=== PATIENT | female | born 1965 | race Caucasian/White ===

== ENCOUNTER 2017-11-24 14:52 | Outpatient (RCR) | payer SELFPAY ==
[2017-11-23 12:19] VITALS: BP 141/93
[~2017-11-24] VITALS: Ht 172.7 cm; Wt 92.3 kg
[2017-11-24 15:23] VITALS: BP 148/85
== END 2017-11-24 16:00 | disposition home or self-care (01) ==
LOC: AMSURD 14:52
DX: I82.4Z9 Acute embolism and thrombosis of unspecified deep veins of unspecified distal lower extremity (principal)
CPT/HCPCS: J1650

== ENCOUNTER → 2017-11-25 | Outpatient (CLI) | payer SELFPAY ==
[2017-11-24 15:23] VITALS: BP 148/85
== END ==
LOC: RAD 13:49
DX: R60.0 Localized edema (principal)

== ENCOUNTER 2018-11-13 11:58 | Emergency (ER) | payer BC ==
[~2018-11-13] VITALS: Ht 172.7 cm; Wt 90.0 kg
[2018-11-13 12:36] LABS: EOS # 0.1 (0.04-0.40); HEMATOCRIT 44.1 % (37.0-47.0); HEMOGLOBIN 14.4 g/dL (12.5-16.0); LYMPH# 1.8 (1.50-4.00); MEAN CELL VOLUME 93 fl (78-100); MEAN CORPUSCULAR HEMOGLOBIN 30 pg (27-31); MEAN CORPUSCULAR HGB CONC 33 g/dL (33-37); MEAN PLATELET VOLUME 10.9 fl (7.4-10.4); MONO # 0.3 (0.20-0.80); NEU # 4.4 (1.40-6.50); PLATELET COUNT 170 K/mm3 (130-400); RED BLOOD COUNT 4.75 M/mm3 (4.10-5.30); RED CELL DISTRIBUTION WIDTH 12.9 % (11.5-14.5); WHITE BLOOD COUNT 6.7 K/mm3 (4.8-10.8)
[2018-11-13 12:46] LABS: ALBUMIN 3.7 g/dL (3.5-5.0)
[2018-11-13 12:47] LABS: CALCIUM 9.1 mg/dL (8.3-10.5)
[2018-11-13 12:48] LABS: TOTAL PROTEIN 7.1 g/dL (6.4-8.3)
[2018-11-13 12:50] LABS: TOTAL BILIRUBIN 0.6 mg/dL (0.2-1.2)
[2018-11-13 15:36] LABS: URINE APPEARANCE HAZY; URINE BILIRUBIN NEGATIVE (NEGATIVE); URINE COLOR YELLOW; URINE GLUCOSE NEGATIVE (NEGATIVE); URINE KETONE NEGATIVE (NEGATIVE); URINE NITRATE NEGATIVE (NEGATIVE); URINE PROTEIN(semi-quant) NEGATIVE (NEGATIVE); URINE UROBILINOGEN NORMAL (NORMAL)
[2018-11-13 15:38] LABS: URINE BLOOD 50 ery/uL (NEGATIVE); URINE LEUKOCYTE ESTERASE 1+ (NEGATIVE)
[2018-11-13] MEDS ORDERED: MACROBID 100 M100 MG PO (15:42)
[2018-11-13 16:04] VITALS: BP 138/99
== END 2018-11-13 15:57 | disposition home or self-care (01) ==
LOC: ED 11:58
PROVIDERS: Nurse Practitioner Primary Care
DX: N30.00 Acute cystitis without hematuria (principal); R09.1 Pleurisy; F17.210 Nicotine dependence, cigarettes, uncomplicated; Z90.710 Acquired absence of both cervix and uterus; Z98.890 Other specified postprocedural states
CPT/HCPCS: J1885; J2405; J7030

== ENCOUNTER 2021-08-24 10:03 | Emergency (ER) | payer SELFPAY ==
[~2021-08-24 10:03] MED LIST: MACROBID 100 M100 MG PO
[2021-08-24 10:18] VITALS: BP 180/96
[2021-08-24 10:53] LABS: BASO # 0.01 K/mm3 (0.02-0.10); EOS # 0.17 K/mm3 (0.04-0.40); HEMATOCRIT 42.3 % (37.0-47.0); HEMOGLOBIN 13.5 g/dL (12.5-16.0); LYMPH# 1.79 K/mm3 (1.50-4.00); MEAN CELL VOLUME 93 fl (78-100); MEAN CORPUSCULAR HEMOGLOBIN 30 pg (27-31); MEAN CORPUSCULAR HGB CONC 32 g/dL (33-37); MEAN PLATELET VOLUME 10.8 fl (7.4-10.4); MONO # 0.61 K/mm3 (0.20-0.80); NEU # 6.03 K/mm3 (1.40-6.50); PLATELET COUNT 179 K/mm3 (130-400); RED BLOOD COUNT 4.55 M/mm3 (4.10-5.30); RED CELL DISTRIBUTION WIDTH 12.5 % (11.5-14.5); WHITE BLOOD COUNT 8.6 K/mm3 (4.8-10.8)
[2021-08-24 11:03] LABS: ALBUMIN 3.8 g/dL (3.5-5.0); POTASSIUM 4.3 mmol/L (3.5-5.1)
[2021-08-24 11:04] LABS: CALCIUM 9.4 mg/dL (8.3-10.5)
[2021-08-24 11:06] LABS: TOTAL PROTEIN 6.6 g/dL (6.4-8.3)
[2021-08-24 11:07] LABS: TOTAL BILIRUBIN 0.4 mg/dL (0.2-1.2)
[2021-08-24 11:28] LABS: PROTHROMBIN TIME 9.4 SECONDS (9.0-12.0)
== END 2021-08-24 11:12 | disposition home or self-care (01) ==
LOC: ED 10:03
PROVIDERS: Physician Assistant
DX: S62.306A Unspecified fracture of fifth metacarpal bone, right hand, initial encounter for closed fracture (principal); M79.89 Other specified soft tissue disorders; F17.200 Nicotine dependence, unspecified, uncomplicated; Z28.310 Unvaccinated for COVID-19; W01.0XXA Fall on same level from slipping, tripping and stumbling without subsequent striking against object, initial encounter
CPT/HCPCS: J1650